=== PATIENT | female | born 1980 | race Caucasian/White ===

== ENCOUNTER 2019-11-04 09:16 | Emergency (ER) | payer BC ==
--- NOTE | 2019-11-04 10:13 | RAD ---
EXAM: 3 views of the right foot HISTORY: Foot pain after dropping a fire extinguisher on the foot COMPARISON: None FINDINGS: 3 views of the right foot shows no evidence of acute fracture or dislocation. No soft tissu e swelling is seen. No degenerative changes are present. IMPRESSION: No evidence of acute osseous abnormality.
== END 2019-11-04 10:30 | disposition home or self-care (01) ==
LOC: MADERS 09:16
DX: S90.121A Contusion of right lesser toe(s) without damage to nail, initial encounter (principal); E11.9 Type 2 diabetes mellitus without complications; Z79.4 Long term (current) use of insulin; W20.8XXA Other cause of strike by thrown, projected or falling object, initial encounter

== ENCOUNTER 2020-01-27 22:09 | Emergency (ER) | payer OTHER, SELFPAY ==
[2020-01-27 23:31] LABS: #Basophils 0.1 thou/uL (0.0-0.2); #Eosinphils 0.3 thou/uL (0.0-0.7); #Lymphocytes 3.6 thou/uL (1.20-3.40); #Monocytes 0.7 thou/uL (0.11-0.59); #Neutrophils 11.8 thou/uL (1.40-6.50); %Basophils 0.6 % (0.0-1.0); %Eosinophils 1.7 % (0.0-10.0); %Lymphocytes 21.9 % (21.0-51.0); %Monocytes 4.2 % (0.0-10.0); %Neutrophils 71.6 % (42.0-75.0); Hemoglobin 12.7 g/dL (12.0-16.0); Mean Corpuscular HGB CONC 31.8 g/dL (32.0-36.0); Mean Corpuscular Hemoglobin 29.9 pg (27.0-31.0); Mean Corpuscular Volume 93.8 fL (78.0-98.0); Mean Platelet Volume 6.4 fL (7.4-10.4); Platelet Count 392 thou/uL (130-400); RBC Distribution Width 13.2 % (11.5-14.5); Red Blood Cell (RBC) Count 4.26 mill/uL (4.20-5.40); White Blood Cell (WBC) Count 16.5 thou/uL (4.8-10.8)
[2020-01-27 23:35] LABS: Prothrombin Time 12.8 sec (12.0-14.7)
[2020-01-27 23:36] LABS: PTT 27.7 sec (22.9-36.1)
[2020-01-27 23:43] LABS: Anion Gap 15 mmol/L (10-20); BUN (Urea Nitrogen) 12 mg/dL (7.0-18.7); Calc. Creatinine Clearance 0 mL/min (70-130); Calcium 8.9 mg/dL (7.8-10.44); Carbon Dioxide 25 mmol/L (22-29); Chloride 105 mmol/L (98-107); Estimated GFR-MDRD 87; Glucose 151 mg/dL (70-105); Potassium 3.9 mmol/L (3.5-5.1); Sodium 141 mmol/L (136-145)
== END 2020-01-28 00:04 | disposition short-term general hospital (02) ==
LOC: MADERS 22:09
DX: M79.652 Pain in left thigh (principal); E11.9 Type 2 diabetes mellitus without complications
CPT/HCPCS: 36415; 80048; 85025; 85610; 85730; 99284

== ENCOUNTER 2020-01-29 14:41 | Outpatient (CLI) | payer OTHER ==
--- NOTE | 2020-01-29 15:06 | RAD ---
Exam: One view pelvis HISTORY: Acute left knee pain COMPARISON: None FINDINGS: Sacroiliac joints are patent and symmetric. Sacral alar preserved. Intact bony pelvis. Cont our of bilateral femoral heads are maintained. Symmetric hip joint spaces. Bilateral obturator rings are intact IMPRESSION: Unremarkable AP pelvic radiograph.
--- NOTE | 2020-01-29 16:37 | RAD ---
TWO VIEWS LEFT HIP: Comparison: None History: Acute hip and knee pain. FINDINGS: Two views of the left hip shows no evidence of acute fracture or dislocation. No degenerative changes are seen. IMPRESSION: Unremarkable exam. POS: EAA
--- NOTE | 2020-01-29 17:09 | RAD ---
EXAM: LEFT KNEE TWO VIEWS: 01/29/20 HISTORY: Acute left knee pain. FINDINGS: No fracture, dislocation, or other significant acute osseous process. IMPRESSION: Unremarkable tow views left knee. POS: RRE
== END 2020-01-29 14:42 | disposition home or self-care (01) ==
LOC: MADRAD 14:41
PROVIDERS: ATTEND Family Medicine
DX: M25.562 Pain in left knee (principal); M25.552 Pain in left hip; M79.652 Pain in left thigh
CPT/HCPCS: 72170

== ENCOUNTER 2020-09-05 15:08 | Emergency (ER) | payer BC ==
[2020-09-05] MEDS ORDERED: Sodium Chloride 0.9% 1,000 ML ONE (15:49)
[2020-09-05 16:24] LABS: ALT (SGPT) 19 U/L (8-55); AST (SGOT) 12 U/L (5-34); Albumin 4.1 g/dL (3.5-5.0); Alkaline Phosphatase 87 U/L (40-110); Anion Gap 17 mmol/L (10-20); BUN (Urea Nitrogen) 9 mg/dL (7.0-18.7); Bilirubin, Total 0.5 mg/dL (0.2-1.2); Calc. Creatinine Clearance 0 mL/min (70-130); Calcium 8.7 mg/dL (7.8-10.44); Carbon Dioxide 23 mmol/L (22-29); Chloride 100 mmol/L (98-107); Globulin 3.2 g/dL (2.4-3.5); Glucose 214 mg/dL (70-105); Lipase 32 U/L (8-78); Potassium 4.4 mmol/L (3.5-5.1); Protein, Total 7.3 g/dL (6.0-8.3); Sodium 136 mmol/L (136-145)
[2020-09-05 16:32] LABS: BHCG - Serum Negative (NEGATIVE); Pregs Control Background? CLEAR/WHITE (CLR/WHITE); Pregs Control Bar Appear? YES (CONTROL BAR)
[2020-09-05 16:37] LABS: #Basophils 0.1 thou/uL (0.0-0.2); #Eosinphils 0.1 thou/uL (0.0-0.7); #Lymphocytes 2.6 thou/uL (1.20-3.40); #Monocytes 0.6 thou/uL (0.11-0.59); #Neutrophils 10.6 thou/uL (1.40-6.50); %Basophils 0.4 % (0.0-1.0); %Eosinophils 0.7 % (0.0-10.0); %Lymphocytes 18.4 % (21.0-51.0); %Monocytes 4.1 % (0.0-10.0); %Neutrophils 76.4 % (42.0-75.0); Hemoglobin 13.9 g/dL (12.0-16.0); Mean Corpuscular HGB CONC 32.5 g/dL (32.0-36.0); Mean Corpuscular Hemoglobin 30.2 pg (27.0-31.0); Mean Corpuscular Volume 92.9 fL (78.0-98.0); Mean Platelet Volume 6.3 fL (7.4-10.4); Platelet Count 365 thou/uL (130-400); RBC Distribution Width 12.5 % (11.5-14.5); White Blood Cell (WBC) Count 13.9 thou/uL (4.8-10.8)
[2020-09-05 16:45] LABS: Base Excess-Venous 0.4 mmol/L (-2.0 to 3.0); Bicarbonate (HCO3v) 27.1 mmol/L (22.0-28.0); CO2 Tension (PvCO2) 49.4 mmHg (40.0-50.0); Calcium, Ionized 1.08 mmol/L (1.15-1.33); Chloride 104 mmol/L (98-107); Hemoglobin - Calc 17.6 g/dL (12.0-16.0); Potassium 4.1 mmol/L (3.5-5.1); Sodium 138 mmol/L (138-145); T. Carbon Dioxide 28.6 mmol/L (22.0-28.0); vO2 Saturation-calc 99.5 % (60.0-85.0)
[2020-09-05 16:46] LABS: Bilirubin Negative (Negative); Blood, Urine Negative (Negative); Clarity Clear (Clear); Glucose, Urine (Dipstick) Negative (Negative); Ketone, Urine Trace mg/dL (Negative); Leukocyte Trace (Negative); Nitrite Negative (Negative); Protein, Urine (Dipstick) Negative (Neg-Trace); Urobilinogen 0.2 mg/dL (Less than 2)
[2020-09-05 16:53] LABS: Bacteria/HPF Rare-Few HPF (None Seen); RBC/HPF None Seen HPF (0-3)
--- NOTE | 2020-09-05 16:59 | CT ---
CT Brain WO Con: 09/05/2020 3:48 PM CLINICAL HISTORY: Altered mental status and drowsiness. IMAGING TECHNIQUE: Multiple CT images were obtained of the brain without IV contrast. COMPARISON: None. FINDINGS: BRAIN: Evidence of acute infarct: None. Evidence of chronic ischemic change:None. Evidence of intracranial hemorrhage: None. Evidence of brain volume loss:None. Evidence of midline shift: Third ventricle and septum pellucidum are midline. Ventricles: Normal. No hydrocephalus. SKULL: Intact. VISUALIZED PARANASAL SINUSES: Clear. MASTOID AIR CELLS: Clear. EXTRACRANIAL SOFT TISSUES: Normal. IMPRESSION: No acute intracranial abnormality.
--- NOTE | 2020-09-05 17:00 | RAD ---
Chest 2 views HISTORY: Altered mental status. Dyspnea. FINDINGS: No comparison. The cardiac silhouette and pulmonary vasculature are unremarkable. Mediastin um is midline. No confluent airspace consolidation, pneumothorax, or pleural fluid. IMPRESSION : No abnormalities are demonstrated.
[2020-09-05 17:04] LABS: Thyroid Stimulating Hormone 1.5941 uIU/mL (0.35-4.94)
[2020-09-07 16:44] LABS: SARS-CoV-2 PCR by NAA Not Detected (NotDetected)
== END 2020-09-05 23:10 | disposition home or self-care (01) ==
LOC: MADERS 15:08
DX: R41.82 Altered mental status, unspecified (principal); R53.83 Other fatigue; Z20.822 Contact with and (suspected) exposure to COVID-19; E11.9 Type 2 diabetes mellitus without complications; Z79.4 Long term (current) use of insulin
CPT/HCPCS: 36416; 70450; 71046; 80053; 81003; 81015; 82330; 82803; 83605; 83690; 84443; 84703; 85014; 85025; 87635; 93005; J7050; U0003; U0005

== ENCOUNTER 2021-03-04 14:50 | Emergency (ER) | payer BC | END 2021-03-04 16:45 | disposition home or self-care (01) | LOC: MADERS 14:50 | DX: M79.672 Pain in left foot (principal); E11.9 Type 2 diabetes mellitus without complications ==

== ENCOUNTER 2021-08-28 10:27 | Emergency (ER) | payer BC ==
[2021-08-28] MEDS ORDERED: Sodium Chloride 0.9% 1,000 ML ONE (10:56)
[2021-08-28] MEDS ORDERED: Meclizine HCl 25 MG TAB ONE (10:56)
[2021-08-28 11:31] LABS: #Basophils 0.1 thou/uL (0.0-0.2); #Eosinphils 0.1 thou/uL (0.0-0.7); #Lymphocytes 2.3 thou/uL (1.20-3.40); #Monocytes 0.5 thou/uL (0.11-0.59); #Neutrophils 8.5 thou/uL (1.40-6.50); %Basophils 0.7 % (0.0-1.0); %Eosinophils 0.7 % (0.0-10.0); %Lymphocytes 19.7 % (21.0-51.0); %Monocytes 4.2 % (0.0-10.0); %Neutrophils 74.6 % (42.0-75.0); Hemoglobin 13.7 g/dL (12.0-16.0); Mean Corpuscular HGB CONC 31.9 g/dL (32.0-36.0); Mean Corpuscular Hemoglobin 29.2 pg (27.0-31.0); Mean Corpuscular Volume 91.5 fL (78.0-98.0); Mean Platelet Volume 5.9 fL (7.4-10.4); Platelet Count 369 thou/uL (130-400); RBC Distribution Width 13.1 % (11.5-14.5); Red Blood Cell (RBC) Count 4.67 mill/uL (4.20-5.40); White Blood Cell (WBC) Count 11.4 thou/uL (4.8-10.8)
[2021-08-28 11:50] LABS: ALT (SGPT) 18 U/L (8-55); AST (SGOT) 8 U/L (5-34); Albumin 3.8 g/dL (3.5-5.0); Alkaline Phosphatase 84 U/L (40-110); Anion Gap 12 mmol/L (10-20); Bilirubin, Total 0.5 mg/dL (0.2-1.2); Calc. Creatinine Clearance 0 mL/min (70-130); Calcium 9.5 mg/dL (7.8-10.44); Carbon Dioxide 27 mmol/L (22-29); Chloride 103 mmol/L (98-107); Globulin 3.9 g/dL (2.4-3.5); Glucose 180 mg/dL (70-105); Potassium 3.9 mmol/L (3.5-5.1); Protein, Total 7.7 g/dL (6.0-8.3); Sodium 138 mmol/L (136-145)
[2021-08-28 12:12] LABS: BUN (Urea Nitrogen) 9 mg/dL (7.0-18.7)
[2021-08-28 12:48] LABS: Bilirubin Negative (Negative); Blood, Urine Negative (Negative); Clarity Clear (Clear); Glucose, Urine (Dipstick) Negative (Negative); Ketone, Urine Negative (Negative); Leukocyte Negative (Negative); Nitrite Negative (Negative); Protein, Urine (Dipstick) Negative (Neg-Trace); Specific Gravity, Urine 1.025 (1.005-1.030); Urobilinogen 0.2 mg/dL (Less than 2); pH, Urine 6.5 (5.0-9.0)
== END 2021-08-28 13:25 | disposition home or self-care (01) ==
LOC: MADERS 10:27
DX: H81.399 Other peripheral vertigo, unspecified ear (principal); E86.0 Dehydration; E11.9 Type 2 diabetes mellitus without complications; Z79.4 Long term (current) use of insulin; Z79.84 Long term (current) use of oral hypoglycemic drugs
CPT/HCPCS: 36415; 80053; 81003; 84484; 85025; 87480; 87510; 87660; 88142; 93005; G0123; J7050

== ENCOUNTER 2021-09-08 16:26 | Outpatient (CLI) | payer BC | END 2021-09-08 16:27 | disposition home or self-care (01) | LOC: MADRAD 16:26 | PROVIDERS: ATTEND Family Medicine | DX: U07.1 COVID-19 (principal); R91.8 Other nonspecific abnormal finding of lung field | CPT/HCPCS: 71046 ==

== ENCOUNTER 2021-12-13 14:54 | Emergency (ER) | payer BC ==
[2021-12-13] MEDS ORDERED: Lidocaine 1%/Epinephrine 1:100K 10 ML VIAL ONE (15:50)
[2021-12-13] MEDS ORDERED: Boostrix 0.5 ML (Tdap) VIAL ONE (16:44)
== END 2021-12-13 16:51 | disposition home or self-care (01) ==
LOC: MADERS 14:54
DX: L02.211 Cutaneous abscess of abdominal wall (principal); E11.65 Type 2 diabetes mellitus with hyperglycemia; Z79.4 Long term (current) use of insulin
CPT/HCPCS: 10060; 36416; 90471; 90715